=== PATIENT | female | born 1980 | race Caucasian/White ===

== ENCOUNTER → 2024-03-10 12:41 | Outpatient (REF) | payer BC, SELFPAY | LOC: HWRAD 12:41 | PROVIDERS: ATTENDING PHYSICIAN Nurse Practitioner Family | DX: Z30.431 Encounter for routine checking of intrauterine contraceptive device (principal) | CPT/HCPCS: 76830; 76856 ==

== ENCOUNTER → 2024-10-04 06:37 | Outpatient (REF) | payer BC, SELFPAY | LOC: WDC 06:37 | PROVIDERS: ATTENDING PHYSICIAN Advanced Practice Midwife | DX: Z12.31 Encounter for screening mammogram for malignant neoplasm of breast (principal) | CPT/HCPCS: 77063; 77067 ==

== ENCOUNTER → 2025-10-06 06:45 | Outpatient (REF) | payer BC, SELFPAY | LOC: WDC 06:45 | PROVIDERS: ATTENDING PHYSICIAN Advanced Practice Midwife | DX: Z12.31 Encounter for screening mammogram for malignant neoplasm of breast (principal) | CPT/HCPCS: 77063; 77067 ==